=== PATIENT | female | born 1960 | race Caucasian/White ===

== ENCOUNTER 2020-07-08 08:59 | Emergency (ER) | payer BC, SELFPAY ==
[2020-07-08 09:01] VITALS: BP 121/91; PULSE 85; RESP 16; TEMP 36; O2SAT 98; BMI 27.7
--- NOTE | 2020-07-08 09:03 | RAD_ITS ---
STUDY: X-RAY - LEFT WRIST REASON FOR EXAM: Female, 60 years old. fall playing volleyball. painful left wrist TECHNIQUE: 3 view(s) of the wrist were obtained. COMPARISON: None. FINDINGS: Acute minimally displaced left distal radius fracture. Acute minimally displaced ulnar styloid fracture. No dislocation. No bone destruction. Mild soft tissue swelling. Mild triscaphoid and first carpometacarpal joint arthrosis. RAD/Wrist min 3 Views IMPRESSION: Acute minimally displaced left distal radius and ulnar fractures Electronically Signed: Ricardo Alexander DO at 9:28 EDT Tel , Service support ,
--- NOTE | 2020-07-08 09:41 | ED.DCSUM_ITS ---
History of Present Illness Chief Complaint: Upper Extremity Injury Informant: Patient Onset: Yesterday Narrative: 60-year-old female presents with concern for left wrist pain. States that she was playing volleyball yesterday when she fell on an outstretched left hand. States that she has had pain in that wrist since yesterday. Describes a sharp in nature worse with movement. Denies any numbness or tingling. Past Medical History - Allergies and Home Meds Allergies/Adverse Reactions: Allergies Gadolinium-MRI Contrast Medium [CONTRAST] Allergy (Verified 07/08/20 09:29) Hives Iodinated Contrast Media [CONTRASTS] Allergy (Verified 07/08/20 09:29) Hives latex Allergy (Verified 07/08/20 09:) Rash Primary Care Physician: NOT,DEFINED [NON-STAFF] - Past Medical History: None Surgical History: cholecystectomy Lives: With Family Smoking Status: Never smoker Alcohol: None Drugs: None Review of Systems General: Denies: Chills, Fever, Sweats Eyes: Denies: Visual changes - bilaterally, Diplopia ENT: Denies: Rhinorrhea, Sore throat Cardiovascular: Denies: Chest pain, Palpitations Respiratory: Denies: Dyspnea, Cough, Dyspnea on exertion Gastrointestinal: Denies: Abdominal pain, Nausea, Vomiting, Diarrhea, Melena, Hematochezia Genitourinary: Denies: Dysuria, Hematuria, Frequency Musculoskeletal: Reports: Arthralgias. Denies: Back pain, Extremity Pain Skin: Denies: Rash, Wounds Neurological: Denies: Headache, Weakness, Numbness Physical Exam Vital Signs/Narrative: Vital Signs Temp Pulse Resp BP Pulse Ox 07/08/20 09:01 96.8 F L 85 16 121/91 H 98 Inital Vital Signs reviewed: Yes General: Well nourished, Well developed, No Acute Distress Head: Normocephalic, Atraumatic Eyes: Perrl, EOMI ENT: Moist mucous membranes, No rhinorrhea Neck: Supple, Nontender Cardiovascular: Regular rate, Regular rhythm, No murmurs Respiratory: No distress, CTA bilaterally, Chest nontender Abdomen: Soft, Nontender, Nondistended, Normal bowel sounds Back: Nontender, Normal Inspection Extremities: No edema, - - TTP of the left wrist. Edema and ecchymosis. Skin: Normal color, No rash Neurological: Alert, Oriented x3, Cranial nerves II-XII grossly intact, Normal Strength, Normal Sensation Psychological: Normal affect, Normal Mood Diagnostic/Tx/Re-eval Clinical Impression(s) from Imaging Studies Wrist X-Ray 07/08/20 09:03 IMPRESSION: Acute minimally displaced left distal radius and ulnar fractures Electronically Signed: Ricardo Alexander DO at 9:28 EDT Tel , Service support , - Medical Decision Making Appears well nontoxic. Vital signs within normal limits. Left distal radius fracture with ulnar styloid fracture. No significant displacement. Patient was given oxycodone and was splinted in place with a volar splint. We will follow- up with orthopedics. Given a short course of Percocet. Asked to return for any numbness or tingling. Patient agreeable and discharged home in stable condition. Impression: 1. Left distal radius fracture 2 left ulnar styloid fracture 3 mechanical fall Procedures - Upper Extremity Splints Upper Extremity Splint: Orthoglass, Volar Splint Fabrication: Pre-fabricated Location: Left ED Disposition - Plan for ED Patient: Disposition: Home or Assisted Living Instructions: ED WRIST FRACTURE General Prescriptions: Oxycodone HCl/Acetaminophen [Percocet 5/325] 1 tab PO Q6H PRN PRN 3 Days #12 tab PRN Reason: Pain Prescription Printed Referrals: Carl Ramey DO [STAFF PHYSICIAN] - 5-7 Days
[2020-07-08] MEDS: oxyCODONE 5 MG Tablet PO (09:48)
== END 2020-07-08 10:35 | disposition home or self-care (01) ==
PROVIDERS: Emergency Provider Emergency Medicine
DX: S52.502A Unspecified fracture of the lower end of left radius, initial encounter for closed fracture (principal); S52.612A Displaced fracture of left ulna styloid process, initial encounter for closed fracture; W19.XXXA Unspecified fall, initial encounter; Y93.68 Activity, volleyball (beach) (court)
CPT/HCPCS: 29125; 73110; 99281; 99284